=== PATIENT | female | born 1965 | race Caucasian/White ===

== ENCOUNTER 2018-11-07 07:43 | Emergency (ER) | payer OTHER ==
[~2018-11-07] VITALS: Ht 157.5 cm; Wt 77.0 kg
[~2018-11-07 07:43] MED LIST: CLIN150C8 PO; PANT-47 PO
[2018-11-07 07:46] VITALS: BP 146/80
[2018-11-07] MEDS ORDERED: ketorolac tromethamine 15mg/ml inj. IM ONE (08:15)
[2018-11-07] MEDS ORDERED: IBUP-1984 PO (08:27)
[2018-11-07] MEDS ORDERED: CYCL-1 PO (08:27)
[2018-11-07] MEDS ORDERED: orphenadrine citrate 60mg/2ml inj. IM ONE (08:50)
== END 2018-11-07 09:14 | disposition home or self-care (01) ==
LOC: ER 07:44
DX: M54.41 Lumbago with sciatica, right side (principal); G89.29 Other chronic pain; Z98.890 Other specified postprocedural states; Z79.899 Other long term (current) drug therapy
CPT/HCPCS: 96372; 99283; J1885; J2360

== ENCOUNTER 2019-05-14 05:59 | Day surgery (SDC) | payer OTHER ==
[2019-05-13 12:30] LABS: BASOPHILS # (AUTO) 0.1 X10'3 (0-0.2); BASOPHILS % (AUTO) 0.7 % (0-1); EOSINOPHILS # (AUTO) 0.2 X10'3 (0-0.9); EOSINOPHILS % (AUTO) 2.1 % (0-6); HEMATOCRIT 33.2 % (35.0-45.0); HEMOGLOBIN 11.5 g/dl (12.0-16.0); LYMPHOCYTES # (AUTO) 2.7 X10'3 (1.1-4.8); LYMPHOCYTES % (AUTO) 31.4 % (21-51); MEAN CORPUSCULAR HEMOGLOBIN 30.2 PG (27.0-31.0); MEAN CORPUSCULAR HGB CONC 34.6 g/dL (33.0-36.5); MEAN CORPUSCULAR VOLUME 87.3 FL (78-98); MEAN PLATELET VOLUME 8.1 FL (7.4-10.4); MONOCYTES # (AUTO) 0.5 X10'3 (0-0.9); MONOCYTES % (AUTO) 5.6 % (2-12); NEUTROPHILS # (AUTO) 5.3 X10'3 (1.8-7.7); NEUTROPHILS % (AUTO) 60.2 % (42-75); PLATELET COUNT 314 X10'3 (140-440); RED BLOOD COUNT 3.81 X10'6 (4.20-5.60); RED CELL DISTRIBUTION WIDTH 14.5 % (11.5-14.5); WHITE BLOOD COUNT 8.7 X10'3 (4.5-11.0)
[2019-05-13 12:48] LABS: PARTIAL THROMBOPLASTIN TIME 26 SECONDS (22-32)
[2019-05-13 12:55] LABS: ALANINE AMINOTRANSFERASE 24 U/L (12-78); ALBUMIN 3.5 G/DL (3.4-5.0); ALKALINE PHOSPHATASE 125 IU/L (46-116); ANION GAP 10 (8-16); ASPARTATE AMINO TRANSFERASE 13 U/L (10-37); BILIRUBIN,TOTAL 0.1 MG/DL (0.1-1.0); BLOOD UREA NITROGEN 6 MG/DL (7-18); BUN/CREATININE RATIO 7.8 (6.6-38.0); CALCIUM 8.5 MG/DL (8.5-10.1); CHLORIDE 107 MMOL/L (99-107); CREATININE 0.77 MG/DL (0.40-0.90); GLUCOSE 96 MG/DL (70-104); POTASSIUM 3.5 MMOL/L (3.5-5.1); SODIUM 143 MMOL/L (135-145); TOTAL CARBON DIOXIDE 26.1 MMOL/L (24-32); eGFR 78 ML/MIN
[2019-05-14] VITALS (17 sets, daily range): BP systolic 107–149; BP diastolic 47–93
[~2019-05-14] VITALS: Ht 157.5 cm; Wt 78.4 kg
[~2019-05-14 05:59] MED LIST changes: +CYCL-1 PO
[2019-05-14] MEDS ORDERED: normal saline 1,000 ML IV SCH (06:20)
[2019-05-14] MEDS ORDERED: nitroGLYCERIN 0.4mg SUBLingual tab SL PRN (06:20)
[2019-05-14] MEDS ORDERED: LORazepam 0.5 MG tablet PO PRN (06:25)
[2019-05-14] MEDS ORDERED: diphenhydrAMINE 25mg capsule PO PRN (06:25)
[2019-05-14] MEDS ORDERED: SERT100T10 PO (06:58)
[2019-05-14] MEDS ORDERED: METH500T6 PO (06:58)
[2019-05-14] MEDS ORDERED: ALPR0.5T8 PO (06:58)
[2019-05-14] MEDS ORDERED: ARIP20TA10 PO (06:58)
[2019-05-14] MEDS ORDERED: CYAN500T63 PO (06:58)
[2019-05-14] MEDS ORDERED: CETI10TA15 PO (06:58)
[2019-05-14] MEDS ORDERED: METO10TA3 PO (06:58)
[2019-05-14] MEDS ORDERED: ACYC400T PO (06:58)
[2019-05-14] MEDS ORDERED: HYDR50TA65 PO (06:58)
[2019-05-14] MEDS ORDERED: TRAZ-251 PO (06:58)
[2019-05-14] MEDS ORDERED: OXYC10TA47 PO (06:58)
[2019-05-14] MEDS ORDERED: ALEN70TA13 PO (06:58)
[2019-05-14] MEDS ORDERED: ALBUTEROL (06:58)
[2019-05-14] MEDS ORDERED: [UNRECOGNIZED DRUG - OTHER] (06:58)
[2019-05-14] MEDS ORDERED: OMEP40CA13 PO (06:58)
[2019-05-14] MEDS ORDERED: midazolam 2 mg/2 ml injection ONE (07:59)
[2019-05-14] MEDS ORDERED: LIDOcaine 1% (10mg/ml)w/preservative injection 20ml MDV ONE (07:59)
[2019-05-14] MEDS ORDERED: iohexol 350MG/ML 100ml bottle IV ONE (07:59)
[2019-05-14] MEDS ORDERED: iohexol 350 MG/ML 50ML vial IV ONE (07:59)
[2019-05-14] MEDS ORDERED: fentaNYL/PF 50MCG/1 ML 2ML syringe ONE (07:59)
[2019-05-14] MEDS ORDERED: HYDROmorphone 1 mg/ml syringe ONE (08:22)
[2019-05-14] MEDS ORDERED: HYDROcodone/acetaminophen 10/325mg tab PO PRN (09:25)
[2019-05-14] MEDS ORDERED: proCHLORperazine 10 MG/2 ml inj IV PRN (09:25)
[2019-05-14] MEDS ORDERED: OXAZEpam 15mg capsule PO PRN (09:25)
[2019-05-14] MEDS ORDERED: ondansetron/PF 4mg/2ml inj IV PRN (09:25)
[2019-05-14] MEDS ORDERED: HYDROcodone/acetaminophen 5mg/325mg tablet PO PRN (09:25)
== END 2019-05-14 15:45 | disposition home or self-care (01) ==
LOC: SSTAY O 05:59
PROVIDERS: ATTEND Internal Medicine Cardiovascular Disease
DX: R94.39 Abnormal result of other cardiovascular function study (principal); G89.4 Chronic pain syndrome; F32.9 Major depressive disorder, single episode, unspecified; F17.210 Nicotine dependence, cigarettes, uncomplicated; F12.90 Cannabis use, unspecified, uncomplicated; J44.9 Chronic obstructive pulmonary disease, unspecified; E78.5 Hyperlipidemia, unspecified; Z79.01 Long term (current) use of anticoagulants; Z79.899 Other long term (current) drug therapy
CPT/HCPCS: 36415; 71046; 80053; 85025; 85610; 85730; 93005; 93458; 99152; 99153; C1769; J1170; J1644; J2001; J2250; J3010; J7030; Q0163; Q9967; A6258; C1760

== ENCOUNTER 2019-07-21 10:19 | Emergency (ER) | payer OTHER ==
[~2019-07-21] VITALS: Ht 157.5 cm; Wt 74.5 kg
[~2019-07-21 10:19] MED LIST changes: +ACYC400T PO; +ALBUTEROL; +ALEN70TA13 PO; +ALPR0.5T8 PO; +ARIP20TA10 PO; +CETI10TA15 PO; +CYAN500T63 PO; +HYDR50TA65 PO; +METH500T6 PO; +METO10TA3 PO; +OMEP40CA13 PO; +OXYC10TA47 PO; +SERT100T10 PO; +TRAZ-251 PO; +[UNRECOGNIZED DRUG - OTHER]
[2019-07-21] MEDS ORDERED: normal saline 1000ML IV soln IVB ONE (10:55)
[2019-07-21] MEDS ORDERED: ondansetron/PF 4mg/2ml inj IV ONE (10:55)
[2019-07-21 11:51] LABS: BASOPHILS # (AUTO) 0.1 X10'3 (0-0.2); BASOPHILS % (AUTO) 0.9 % (0-1); EOSINOPHILS # (AUTO) 0.1 X10'3 (0-0.9); EOSINOPHILS % (AUTO) 1.6 % (0-6); HEMATOCRIT 33.5 % (35.0-45.0); HEMOGLOBIN 11.4 g/dl (12.0-16.0); LYMPHOCYTES # (AUTO) 1.1 X10'3 (1.1-4.8); LYMPHOCYTES % (AUTO) 14.2 % (21-51); MEAN CORPUSCULAR HEMOGLOBIN 30.1 PG (27.0-31.0); MEAN CORPUSCULAR VOLUME 88.5 FL (78-98); MONOCYTES # (AUTO) 0.5 X10'3 (0-0.9); MONOCYTES % (AUTO) 6.5 % (2-12); NEUTROPHILS # (AUTO) 5.7 X10'3 (1.8-7.7); NEUTROPHILS % (AUTO) 76.8 % (42-75); PLATELET COUNT 454 X10'3 (140-440); RED BLOOD COUNT 3.79 X10'6 (4.20-5.60); RED CELL DISTRIBUTION WIDTH 14.8 % (11.5-14.5); WHITE BLOOD COUNT 7.4 X10'3 (4.5-11.0)
[2019-07-21] MEDS ORDERED: iohexol 300mg/ml 100ml inj. ONE (11:51)
[2019-07-21] MEDS: morphine 4 MG/ML inj SYRINge IV PRN ×2 (11:58→12:50)
[2019-07-21 12:07] LABS: ALANINE AMINOTRANSFERASE 14 U/L (12-78); ALBUMIN/GLOBULIN RATIO 0.7 (1.1-1.5); ALKALINE PHOSPHATASE 172 IU/L (46-116); ANION GAP 10 (8-16); ASPARTATE AMINO TRANSFERASE 13 U/L (10-37); BILIRUBIN,TOTAL 0.2 MG/DL (0.1-1.0); BLOOD UREA NITROGEN 7 MG/DL (7-18); BUN/CREATININE RATIO 10.1 (6.6-38.0); CALCIUM 8.7 MG/DL (8.5-10.1); CHLORIDE 102 MMOL/L (99-107); CREATININE 0.69 MG/DL (0.40-0.90); GLUCOSE 94 MG/DL (70-104); LIPASE < 50 U/L (73-393); POTASSIUM 3.2 MMOL/L (3.5-5.1); SODIUM 142 MMOL/L (135-145); TOTAL PROTEIN 7.3 G/DL (6.4-8.2); eGFR 89 ML/MIN
[2019-07-21] MEDS ORDERED: HYDROcodone/acetaminophen 5mg/325mg tablet PO ONE (14:00)
[2019-07-21 14:23] LABS: CLARITY,URINE CLOUDY (Clear); COLOR,URINE STRAW (Yellow); GLUCOSE, URINE NEGATIVE (Neg); KETONES,URINE NEGATIVE (Neg); LEUKOCYTE ESTERASE ,URINE NEGATIVE (Neg); NITRITES, URINE NEGATIVE (Neg); OCCULT BLOOD,URINE NEGATIVE (Neg); PH,URINE 6.5 (4.8-8.0); PROTEIN,URINE NEGATIVE (Neg); UROBILINOGEN,URINE 0.2 E.U/dL (0.2-1.0)
[2019-07-21] MEDS ORDERED: HYDR-3965 PO (14:23)
[2019-07-21] MEDS ORDERED: ONDA8TAB6 PO (14:23)
[2019-07-21 14:29] LABS: UA COLLECTION TYPE CLN CATCH MIDSTREAM
[2019-07-21 14:34] LABS: MUCUS STRANDS NONE SEEN /LPF (Neg); SQUAMOUS EPITHELIAL CELL,UR MANY /LPF (FEW)
[2019-07-21 14:35] LABS: BACTERIA,URINE 2+ /HPF (Neg); RBC,URINE NONE SEEN /HPF (0-2); TRANSITIONAL EPI CELLS,URINE FEW /HPF; WBC,URINE 0-4 /HPF (0-4)
[2019-07-21 14:37] VITALS: BP 129/66
== END 2019-07-21 14:38 | disposition home or self-care (01) ==
LOC: ER 10:20
DX: G89.18 Other acute postprocedural pain (principal); R11.2 Nausea with vomiting, unspecified; R10.84 Generalized abdominal pain; G89.29 Other chronic pain; Z98.890 Other specified postprocedural states; Z79.899 Other long term (current) drug therapy
CPT/HCPCS: 36415; 74177; 80053; 81001; 83605; 83690; 85025; 96361; 96374; 96375; 96376; 99284; J2270; J2405; J7030; Q9967

== ENCOUNTER 2019-07-27 11:43 | Emergency (ER) | payer OTHER ==
[~2019-07-27] VITALS: Ht 157.5 cm; Wt 72.0 kg
[~2019-07-27 11:43] MED LIST changes: +HYDR-3965 PO; +ONDA8TAB6 PO
[2019-07-27 11:59] VITALS: BP 117/60
--- NOTE | 2019-07-27 12:45 | NUR ---
PATIENT HERE ON 07/21/19 FOR PAIN MEDICATION AND RECEIVED A PRESCRIPTION FOR NORCO. PATIENT HAD AN AP APROACH TO HER MID LOW BACK SX WITH DR CHINCHILLA IN MAY. PATIENT RETURNS FOR REFILL OF NORCO PROVIDED IN ER. PATIENT RECIEVED PER RECORDS OXYCONTIN 20 MG FOR 30 DAYS THAT SHOULS HAVE BEEN OUT ON 07/25/19. PRETTY ALSO HAD PERCOCET PRESCRIBED BY DR CHINCHILLA ABOUT 2 WEEKS AGO THAT [facility] HAVE LASTED TILL 07/26/19. PA INFORMED. TAVARES SPOKE TO ER DIRECTOR. PATIENT IFORMED WITH ME PRESENT BY PA THAT SHE WILL NOT BE RECEIVING A PRESCRIPTION BUT WILL RE CIEVE A NORCO HERE
--- NOTE | 2019-07-27 12:50 | NUR ---
PATIENT HAD 4 OXYCODONE 20 MG IN HER BOTTLE THAT SHE SHOWED ME. DISCUSSED OTHER MODALITIES TO HELP WITH PAIN.
[2019-07-27] MEDS ORDERED: HYDROcodone/acetaminophen 10/325mg tab PO ONE (13:00)
== END 2019-07-27 13:11 | disposition home or self-care (01) ==
LOC: ER 11:44
DX: G89.18 Other acute postprocedural pain (principal); Z98.890 Other specified postprocedural states; Z79.2 Long term (current) use of antibiotics; Z79.899 Other long term (current) drug therapy
CPT/HCPCS: 99282

== ENCOUNTER 2020-09-09 15:18 | Emergency (ER) | payer OTHER, MEDICAID ==
[~2020-09-09] VITALS: Ht 157.5 cm; Wt 72.1 kg
[~2020-09-09 15:18] MED LIST changes: -ALEN70TA13 PO; +ALEN70TA80 PO; -CYAN500T63 PO; +CYAN500T71 PO; -HYDR-3965 PO
[2020-09-09 15:34] VITALS: BP 151/87
[2020-09-09] MEDS ORDERED: ketorolac tromethamine 15mg/ml inj. IM ONE (17:40)
== END 2020-09-09 18:06 | disposition home or self-care (01) ==
LOC: ER 15:18
DX: M25.512 Pain in left shoulder (principal); M54.10 Radiculopathy, site unspecified; G89.29 Other chronic pain; Z85.9 Personal history of malignant neoplasm, unspecified; Z98.890 Other specified postprocedural states; Z79.2 Long term (current) use of antibiotics; Z79.899 Other long term (current) drug therapy
CPT/HCPCS: 73030; 93005; 96372; 99283; J1885

== ENCOUNTER 2022-05-16 15:36 | Emergency (ER) | payer OTHER, MEDICAID ==
[~2022-05-16] VITALS: Ht 157.5 cm; Wt 75.0 kg
[~2022-05-16 15:36] MED LIST changes: -ARIP20TA10 PO; +ARIP20TA21 PO; +METH-797 PO; -METH500T6 PO; -OMEP40CA13 PO; +OMEP40CA21 PO; +SERT-434 PO; -SERT100T10 PO
[2022-05-16 15:43] VITALS: BP 122/63
[2022-05-16] MEDS ORDERED: CEPH250T PO (17:49)
== END 2022-05-16 19:14 | disposition home or self-care (01) ==
LOC: ER 15:37
DX: R05.9 Cough, unspecified (principal); R06.02 Shortness of breath; G89.29 Other chronic pain; Z85.9 Personal history of malignant neoplasm, unspecified; Z98.890 Other specified postprocedural states; Z79.2 Long term (current) use of antibiotics; Z79.899 Other long term (current) drug therapy
CPT/HCPCS: 71046; 99283

== ENCOUNTER 2022-11-05 14:29 | Emergency (ER) | payer OTHER, MEDICAID | END 2022-11-05 15:13 | disposition left against medical advice (07) | LOC: ER 14:29 | DX: K08.89 Other specified disorders of teeth and supporting structures (principal); Z53.21 Procedure and treatment not carried out due to patient leaving prior to being seen by health care provider ==

== ENCOUNTER 2023-11-25 11:55 | Emergency (ER) | payer OTHER, MEDICARE, MEDICAID ==
[~2023-11-25] VITALS: Ht 157.5 cm; Wt 74.3 kg
[~2023-11-25 11:55] MED LIST changes: +CLIN-214 PO; -CLIN150C8 PO
[2023-11-25 12:34] VITALS: BP 126/50; PULSE 68; TEMP 97.9; O2SAT 95
[2023-11-25 13:23] LABS: BASOPHILS # (AUTO) 0.1 X10'3 (0-0.2); BASOPHILS % (AUTO) 0.8 % (0-1); EOSINOPHILS # (AUTO) 0.1 X10'3 (0-0.9); EOSINOPHILS % (AUTO) 2.1 % (0-6); HEMATOCRIT 34.9 % (35.0-45.0); HEMOGLOBIN 11.9 g/dl (12.0-16.0); LYMPHOCYTES # (AUTO) 1.7 X10'3 (1.1-4.8); LYMPHOCYTES % (AUTO) 24.8 % (21-51); MEAN CORPUSCULAR HEMOGLOBIN 30.9 PG (27.0-31.0); MEAN CORPUSCULAR HGB CONC 34.1 g/dL (33.0-36.5); MEAN CORPUSCULAR VOLUME 90.5 FL (78-98); MEAN PLATELET VOLUME 7.9 FL (7.4-10.4); MONOCYTES # (AUTO) 0.5 X10'3 (0-0.9); MONOCYTES % (AUTO) 7.8 % (2-12); NEUTROPHILS # (AUTO) 4.4 X10'3 (1.8-7.7); NEUTROPHILS % (AUTO) 64.5 % (42-75); PLATELET COUNT 184 X10'3 (140-440); RED BLOOD COUNT 3.85 X10'6 (4.20-5.60); RED CELL DISTRIBUTION WIDTH 12.9 % (11.5-14.5); WHITE BLOOD COUNT 6.8 X10'3 (4.5-11.0)
[2023-11-25 13:32] LABS: ALANINE AMINOTRANSFERASE 21 U/L (12-78); ALBUMIN 3.5 G/DL (3.4-5.0); ALBUMIN/GLOBULIN RATIO 1.2 (1.1-1.5); ALKALINE PHOSPHATASE 129 IU/L (46-116); ANION GAP 8 (8-16); ASPARTATE AMINO TRANSFERASE 8 U/L (10-37); BLOOD UREA NITROGEN 11 MG/DL (7-18); BUN/CREATININE RATIO 13.6 (10.0-20.0); CALCIUM 8.5 MG/DL (8.5-10.1); CHLORIDE 108 MMOL/L (99-107); CREATININE 0.81 MG/DL (0.40-0.90); GLUCOSE 111 MG/DL (70-104); LIPASE 32 U/L (16-77); POTASSIUM 4.1 MMOL/L (3.5-5.1); SODIUM 143 MMOL/L (135-145); TOTAL PROTEIN 6.4 G/DL (6.4-8.2); eCRCL 59 ML/MIN; eGFR 72 ML/MIN
[2023-11-25 13:35] LABS: BILIRUBIN,TOTAL 0.1 MG/DL (0.1-1.0)
[2023-11-25 14:08] LABS: BILIRUBIN,URINE NEGATIVE (Neg); CLARITY,URINE CLEAR (Clear); COLOR,URINE STRAW (Yellow); GLUCOSE, URINE NEGATIVE (Neg); KETONES,URINE NEGATIVE (Neg); LEUKOCYTE ESTERASE ,URINE NEGATIVE (Neg); NITRITES, URINE NEGATIVE (Neg); OCCULT BLOOD,URINE NEGATIVE (Neg); PH,URINE 5.5 (4.8-8.0); PROTEIN,URINE NEGATIVE (Neg); UROBILINOGEN,URINE 0.2 E.U/dL (0.2-1.0)
[2023-11-25 14:09] LABS: URINE HCG NEGATIVE (NEG)
[2023-11-25 14:14] LABS: UA COLLECTION TYPE CLN CATCH MIDSTREAM
[2023-11-25 14:16] VITALS: RESP 18
[2023-11-25] MEDS ORDERED: iohexol 300mg/ml 100ml inj. ONE (16:09)
[2023-11-25] MEDS ORDERED: SUCR1TAB34 PO (17:33)
[2023-11-25] MEDS: acetaminophen w/codeine (30MG) #3 tablet PO ONE (18:16)
== END 2023-11-25 18:21 | disposition home or self-care (01) ==
LOC: ER 11:56
DX: R10.13 Epigastric pain (principal); R11.0 Nausea; K21.9 Gastro-esophageal reflux disease without esophagitis; Z79.899 Other long term (current) drug therapy; Z79.2 Long term (current) use of antibiotics
CPT/HCPCS: 36415; 74177; 80053; 81003; 81025; 83690; 85025; 99285; J3490; Q9967

== ENCOUNTER 2024-03-19 10:38 | Emergency (ER) | payer OTHER, MEDICARE, MEDICAID ==
[~2024-03-19] VITALS: Ht 157.5 cm; Wt 74.8 kg
[~2024-03-19 10:38] MED LIST changes: +SUCR1TAB34 PO
[2024-03-19 10:52] VITALS: TEMP 98
[2024-03-19 11:00] LABS: BASOPHILS # (AUTO) 0.1 X10'3 (0-0.2); BASOPHILS % (AUTO) 0.6 % (0-1); EOSINOPHILS # (AUTO) 0.1 X10'3 (0-0.9); EOSINOPHILS % (AUTO) 1.2 % (0-6); HEMATOCRIT 35.1 % (35.0-45.0); HEMOGLOBIN 11.6 g/dl (12.0-16.0); LYMPHOCYTES # (AUTO) 2.1 X10'3 (1.1-4.8); LYMPHOCYTES % (AUTO) 21.7 % (21-51); MEAN CORPUSCULAR HEMOGLOBIN 29.8 PG (27.0-31.0); MEAN CORPUSCULAR HGB CONC 33.1 g/dL (33.0-36.5); MONOCYTES # (AUTO) 0.7 X10'3 (0-0.9); MONOCYTES % (AUTO) 7.5 % (2-12); NEUTROPHILS # (AUTO) 6.6 X10'3 (1.8-7.7); PLATELET COUNT 214 X10'3 (140-440); RED CELL DISTRIBUTION WIDTH 13.4 % (11.5-14.5); WHITE BLOOD COUNT 9.5 X10'3 (4.5-11.0)
[2024-03-19 11:19] LABS: ALANINE AMINOTRANSFERASE 26 U/L (12-78); ALBUMIN 3.4 G/DL (3.4-5.0); ALBUMIN/GLOBULIN RATIO 1.2 (1.1-1.5); ALKALINE PHOSPHATASE 102 IU/L (46-116); ANION GAP 5 (8-16); ASPARTATE AMINO TRANSFERASE 14 U/L (10-37); BILIRUBIN,TOTAL 0.2 MG/DL (0.1-1.0); BLOOD UREA NITROGEN 11 MG/DL (7-18); BUN/CREATININE RATIO 15.9 (10.0-20.0); CALCIUM 8.7 MG/DL (8.5-10.1); CHLORIDE 106 MMOL/L (99-107); CREATININE 0.69 MG/DL (0.40-0.90); GLUCOSE 118 MG/DL (70-104); POTASSIUM 3.8 MMOL/L (3.5-5.1); SODIUM 142 MMOL/L (135-145); TOTAL CARBON DIOXIDE 30.6 MMOL/L (24-32); TOTAL PROTEIN 6.3 G/DL (6.4-8.2); eCRCL 69 ML/MIN; eGFR 87 ML/MIN
[2024-03-19 11:25] LABS: PRO BRAIN NATRIURETIC PEPTIDE 127 PG/ML (0-125)
[2024-03-19] MEDS: LIDOcaine 2% Viscous 15ml cup MM PRN (12:50)
[2024-03-19] MEDS: mag hydrox/Alum hydrox/simeth 30ml oral suspension PO ONE (12:50)
[2024-03-19] MEDS: ketorolac trometh 30MG/ML vial 30 MG/ML VIAL IM ONE (13:06)
[2024-03-19] MEDS: ketorolac trometh 15mg/ml vial 15 MG/ML ML IM ONE (13:08)
[2024-03-19] MEDS ORDERED: SUCR1ORA12 PO (13:40)
[2024-03-19 13:45] VITALS: BP 140/76; PULSE 63; RESP 26; O2SAT 96
[2024-03-19 14:21] LABS: OCCULT BLOOD STOOL NEGATIVE (Neg)
== END 2024-03-19 14:15 | disposition home or self-care (01) ==
LOC: ER 10:38
DX: K29.00 Acute gastritis without bleeding (principal); R10.13 Epigastric pain; R11.2 Nausea with vomiting, unspecified; K21.9 Gastro-esophageal reflux disease without esophagitis; G89.29 Other chronic pain; M54.9 Dorsalgia, unspecified; Z85.89 Personal history of malignant neoplasm of other organs and systems; Z79.899 Other long term (current) drug therapy; Z79.2 Long term (current) use of antibiotics; Z98.890 Other specified postprocedural states; Z20.822 Contact with and (suspected) exposure to COVID-19
CPT/HCPCS: 36415; 71045; 80053; 82272; 83690; 83880; 84484; 85025; 87811; 93005; 96372; 99285; J1885

== ENCOUNTER 2024-11-11 03:23 | Emergency (ER) | payer OTHER, MEDICARE, MEDICAID ==
[~2024-11-11] VITALS: Ht 152.4 cm; Wt 73.2 kg
[~2024-11-11 03:23] MED LIST changes: -ARIP20TA21 PO; +ARIP20TA63 PO; +SUCR1ORA12 PO
[2024-11-11 04:02] VITALS: BP 115/50; PULSE 66; RESP 14; TEMP 98.7; O2SAT 93
== END 2024-11-11 04:50 | disposition home or self-care (01) ==
LOC: ER 03:23
DX: R07.89 Other chest pain (principal); K21.9 Gastro-esophageal reflux disease without esophagitis
CPT/HCPCS: 71045; 99283